=== PATIENT | male | born 1985 ===

== ENCOUNTER 2019-06-30 13:42 | Emergency (ER) | payer SELFPAY ==
[2019-06-30] MEDS ORDERED: Fluorescein Opthalmic Strip ONE (14:17)
[2019-06-30] MEDS ORDERED: Proparacaine 0.5% Opth 15 ML BOT ONE (14:18)
== END 2019-06-30 15:06 | disposition home or self-care (01) ==
LOC: ERS 13:42
DX: S05.01XA Injury of conjunctiva and corneal abrasion without foreign body, right eye, initial encounter (principal); Y29.XXXA Contact with blunt object, undetermined intent, initial encounter
CPT/HCPCS: 99283